=== PATIENT | male | born 1940 | race Hispanic/Latino ===

== ENCOUNTER 2025-02-16 16:22 | Inpatient (IN) | payer MEDICARE, OTHER ==
[~2025-02-16] VITALS: Ht 167.6 cm; Wt 69.6 kg
[2025-02-16 16:41] VITALS: TEMP 98.6
[2025-02-16 17:27] LABS: BASOPHILS % 0.4 % (0.0-1.0); EOSINOPHILS % 0.6 % (0.0-6.0); HEMATOCRIT 30.6 % (38.2-49.6); LYMPHOCYTES # (AUTO) 0.8 (1.0-3.2); LYMPHOCYTES % 15.6 % (18.0-39.1); MEAN CORPUSCULAR HEMOGLOBIN 28.7 pg (28-32); MEAN CORPUSCULAR HGB CONC 32.7 g/dL (31-35); MEAN CORPUSCULAR VOLUME 87.7 fL (81-99); MONOCYTES # (AUTO) 0.4 (0.2-0.8); NEUTROPHILS # (AUTO) 3.9 (2.1-6.9); NEUTROPHILS % 74.6 % (38.7-80.0); PLATELET COUNT 278 x10e3/uL (140-360); RED BLOOD COUNT 3.49 x10e6/uL (4.3-5.7); WHITE BLOOD COUNT 5.27 x10e3/uL (4.8-10.8)
[2025-02-16 17:31] LABS: INR 1.01; PARTIAL THROMBOPLASTIN TIME 28.2 seconds (23.8-35.5); PROTHROMBIN TIME 13.9 seconds (11.9-14.5)
[2025-02-16 17:41] LABS: ALBUMIN 3.5 g/dL (3.5-5.0); ALBUMIN/GLOBULIN RATIO 0.7 (0.8-2.0); ANION GAP 15.8 mmol/L (8-16); BILIRUBIN,TOTAL 0.6 mg/dL (0.2-1.2); CALCIUM 9.3 mg/dL (8.4-10.2); CREATININE, SERUM 0.97 mg/dL (0.72-1.25); MAGNESIUM 2.4 MG/DL (1.3-2.1); POTASSIUM 3.8 mmol/L (3.5-5.1); TOTAL PROTEIN 8.4 g/dL (6.5-8.1)
[2025-02-16 17:47] LABS: TROPONIN I 0.048 ng/mL (0-0.300)
[2025-02-16] MEDS: SODIUM CHLORIDE 0.9% 1000ML 1,000 ML IV STA (18:45)
[2025-02-16] MEDS: ONDANSETRON HCL INJ 2MG/ML 2ML 2 MG/ML VIAL IV STA (18:48)
[2025-02-16 19:34] VITALS: PULSE 89; RESP 17
[2025-02-16] MEDS ORDERED: ONDANSETRON HCL INJ 2MG/ML 2ML 2 MG/ML VIAL IV PRN (19:45)
[2025-02-16 19:48] LABS: BILIRUBIN,URINE SMALL (NEGATIVE); CLARITY,URINE SL CLOUDY (CLEAR); COLOR,URINE AMBER (YELLOW); GLUCOSE, URINE NEGATIVE (NEGATIVE); KETONES,URINE TRACE (NEGATIVE); LEUKOCYTE ESTERASE ,URINE NEGATIVE (NEGATIVE); NITRITE,URINE NEGATIVE (NEGATIVE); PH,URINE 5.5 (5 - 7); PROTEIN,URINE DIPSTICK 1+ (NEGATIVE); URINE UROBILINOGEN 4 mg/dL (0.2 - 1)
[2025-02-16 19:59] LABS: BACTERIA,URINE FEW /HPF; MUCUS,URINE MODERATE
[2025-02-16 20:00] VITALS: BP 111/67; PULSE 70; RESP 18; TEMP 97.8; O2SAT 98
[2025-02-16 21:00] VITALS: BP 102/63; PULSE 79; RESP 18; TEMP 98; O2SAT 100
[2025-02-16] MEDS: SODIUM CHLORIDE 0.9% 1000ML 1,000 ML IV SCH (23:22)
[2025-02-17] VITALS (8 sets, daily range): BP systolic 104–127; BP diastolic 57–82; PULSE 64–84; RESP 16–20; TEMP 97.6–98.3; O2SAT 98–100
[2025-02-17] MEDS: Morphine 4mg INJECTION 4 MG/ML INJ IV PRN (04:04)
[2025-02-17 05:26] LABS: BASOPHILS % 0.2 % (0.0-1.0); EOSINOPHILS % 0.8 % (0.0-6.0); HEMATOCRIT 25.4 % (38.2-49.6); HEMOGLOBIN 8.1 g/dL (14.0-18.0); LYMPHOCYTES # (AUTO) 0.8 (1.0-3.2); LYMPHOCYTES % 17.5 % (18.0-39.1); MEAN CORPUSCULAR HEMOGLOBIN 28.3 pg (28-32); MEAN CORPUSCULAR HGB CONC 31.9 g/dL (31-35); MEAN CORPUSCULAR VOLUME 88.8 fL (81-99); MONOCYTES # (AUTO) 0.5 (0.2-0.8); MONOCYTES % 11.2 % (4.4-11.3); NEUTROPHILS # (AUTO) 3.3 (2.1-6.9); NEUTROPHILS % 69.7 % (38.7-80.0); PLATELET COUNT 223 x10e3/uL (140-360); RED BLOOD COUNT 2.86 x10e6/uL (4.3-5.7); RED CELL DISTRIBUTION WIDTH 14.9 % (11.7-14.4); WHITE BLOOD COUNT 4.75 x10e3/uL (4.8-10.8)
[2025-02-17 05:59] LABS: ALBUMIN 2.9 g/dL (3.5-5.0); ALBUMIN/GLOBULIN RATIO 0.7 (0.8-2.0); ANION GAP 13.6 mmol/L (8-16); BILIRUBIN,TOTAL 0.4 mg/dL (0.2-1.2); CALCIUM 8.2 mg/dL (8.4-10.2); CREATININE, SERUM 0.81 mg/dL (0.72-1.25); POTASSIUM 3.6 mmol/L (3.5-5.1); TOTAL PROTEIN 6.8 g/dL (6.5-8.1)
[2025-02-17 06:39] LABS: TROPONIN I 0.038 ng/mL (0-0.300)
[2025-02-17] MEDS ORDERED: IOPAMIDOL 370 MG/ML 100 ML INFUS..BTL INJ ONE (08:13)
[2025-02-17 14:43] LABS: TROPONIN I 0.039 ng/mL (0-0.300)
[2025-02-17] MEDS ORDERED: LEVOTHYROXINE75 MCG PO (19:53)
[2025-02-17] MEDS ORDERED: SERTRALINE HCL50 MG PO (19:53)
[2025-02-17] MEDS ORDERED: CLEARLAX119 GM (19:53)
[2025-02-18 03:21] VITALS: BP 91/57; PULSE 59; RESP 18; TEMP 98.2; O2SAT 99
[2025-02-18 07:58] VITALS: BP 95/61; PULSE 56; RESP 19; TEMP 97.9; O2SAT 97
[2025-02-18 08:00] VITALS: BP 95/61; PULSE 56; RESP 19; TEMP 97.9; O2SAT 97
[2025-02-18] MEDS: ZIPRASIDONE 20 MG VIAL IM PRN (09:38)
[2025-02-18 16:22] VITALS: BP 156/79; PULSE 68; RESP 18; TEMP 97; O2SAT 100
[2025-02-18] MEDS ORDERED: ZIPRASIDONE 20 MG VIAL IM PRN (18:30)
[2025-02-18] MEDS ORDERED: HYDROCODONE/APAP 7.5MG-325MG 1 EA TAB PO PRN (18:30)
[2025-02-18] MEDS ORDERED: HYDRALAZINE HCL 20 MG/ML VIAL IV PRN (18:30)
[2025-02-18] MEDS: IRON SUCROSE 100 MG in SODIUM CHLORIDE 0.9% 100 ML IV SCH (20:00)
[2025-02-18 20:17] VITALS: BP 113/64; PULSE 58; RESP 18; TEMP 98.1; O2SAT 98
[2025-02-18] MEDS: GABAPENTIN 100 MG CAP PO SCH (22:00)
[2025-02-18] MEDS: METRONIDAZOLE 500MG/NS 100ML 100 ML IV SCH (22:00)
[2025-02-19] VITALS (7 sets, daily range): BP systolic 99–128; BP diastolic 59–81; PULSE 61–87; RESP 17–20; TEMP 97.9–98.7; O2SAT 98–100
[2025-02-19 05:05] LABS: BASOPHILS % 0.4 % (0.0-1.0); EOSINOPHILS % 0.4 % (0.0-6.0); HEMATOCRIT 26.1 % (38.2-49.6); HEMOGLOBIN 8.1 g/dL (14.0-18.0); LYMPHOCYTES # (AUTO) 0.7 (1.0-3.2); LYMPHOCYTES % 15.3 % (18.0-39.1); MEAN CORPUSCULAR HEMOGLOBIN 27.8 pg (28-32); MEAN CORPUSCULAR VOLUME 89.7 fL (81-99); MONOCYTES # (AUTO) 0.5 (0.2-0.8); MONOCYTES % 10.5 % (4.4-11.3); NEUTROPHILS # (AUTO) 3.5 (2.1-6.9); NEUTROPHILS % 72.8 % (38.7-80.0); PLATELET COUNT 192 x10e3/uL (140-360); RED BLOOD COUNT 2.91 x10e6/uL (4.3-5.7); RED CELL DISTRIBUTION WIDTH 14.9 % (11.7-14.4); WHITE BLOOD COUNT 4.77 x10e3/uL (4.8-10.8)
[2025-02-19 05:19] LABS: RAPID PLASMA REAGIN Non Reactive (Non Reactive)
[2025-02-19 05:34] LABS: ALBUMIN 2.8 g/dL (3.5-5.0); ALBUMIN/GLOBULIN RATIO 0.8 (0.8-2.0); ANION GAP 12.6 mmol/L (8-16); BILIRUBIN,TOTAL 0.3 mg/dL (0.2-1.2); CALCIUM 8.5 mg/dL (8.4-10.2); CREATININE, SERUM 0.79 mg/dL (0.72-1.25); POTASSIUM 3.6 mmol/L (3.5-5.1); TOTAL PROTEIN 6.3 g/dL (6.5-8.1)
[2025-02-19] MEDS ORDERED: THIAMINE HCL INJ 100 MG/ML 2ML VIAL ONE (07:46)
[2025-02-19] MEDS: QUETIAPINE FUMARATE 25 MG TAB PO SCH (08:43)
[2025-02-20] VITALS (7 sets, daily range): BP systolic 113–117; BP diastolic 61–71; PULSE 67–95; RESP 18–19; TEMP 97.6–98.4; O2SAT 94–100
[2025-02-20] MEDS: IRON SUCROSE 100 MG in SODIUM CHLORIDE 0.9% 100 ML IV SCH (00:44)
[2025-02-21] VITALS (9 sets, daily range): BP systolic 103–143; BP diastolic 49–82; PULSE 69–102; RESP 16–24; TEMP 97.2–98.4; O2SAT 96–100
[2025-02-22] VITALS (7 sets, daily range): BP systolic 117–133; BP diastolic 60–74; PULSE 66–97; RESP 17–19; TEMP 97.6–98.8; O2SAT 97–100
[2025-02-22 06:28] LABS: BASOPHILS % 0.2 % (0.0-1.0); EOSINOPHILS # (AUTO) 0.1 (0.0-0.4); EOSINOPHILS % 1.4 % (0.0-6.0); HEMATOCRIT 24.7 % (38.2-49.6); LYMPHOCYTES # (AUTO) 0.9 (1.0-3.2); LYMPHOCYTES % 15.7 % (18.0-39.1); MEAN CORPUSCULAR HEMOGLOBIN 27.2 pg (28-32); MEAN CORPUSCULAR HGB CONC 30.8 g/dL (31-35); MEAN CORPUSCULAR VOLUME 88.5 fL (81-99); MONOCYTES # (AUTO) 0.6 (0.2-0.8); MONOCYTES % 10.3 % (4.4-11.3); NEUTROPHILS % 71.3 % (38.7-80.0); PLATELET COUNT 231 x10e3/uL (140-360); RED BLOOD COUNT 2.79 x10e6/uL (4.3-5.7); RED CELL DISTRIBUTION WIDTH 15.5 % (11.7-14.4); WHITE BLOOD COUNT 5.55 x10e3/uL (4.8-10.8)
[2025-02-22 06:34] LABS: HEMOGLOBIN 7.6 g/dL (14.0-18.0)
[2025-02-22 07:05] LABS: ANION GAP 11.6 mmol/L (8-16); CALCIUM 8.3 mg/dL (8.4-10.2); CREATININE, SERUM 0.76 mg/dL (0.72-1.25); POTASSIUM 3.6 mmol/L (3.5-5.1)
== END 2025-02-22 20:10 | disposition hospice, home (50) | DRG 91 ==
LOC: ER 17:23 → ERHOLD 19:44 → MED/SURG 20:25
PROVIDERS: ADMIT Internal Medicine; ATTEND Internal Medicine
DX: G92.8 Other toxic encephalopathy (principal); E43 Unspecified severe protein-calorie malnutrition; F01.511 Vascular dementia, unspecified severity, with agitation; C15.9 Malignant neoplasm of esophagus, unspecified; F01.52 Vascular dementia, unspecified severity, with psychotic disturbance; N39.0 Urinary tract infection, site not specified; K22.2 Esophageal obstruction; Z51.5 Encounter for palliative care; I10 Essential (primary) hypertension; E78.5 Hyperlipidemia, unspecified; E86.0 Dehydration; Z93.1 Gastrostomy status; Z91.198 Patient's noncompliance with other medical treatment and regimen for other reason; Z63.4 Disappearance and death of family member; Z86.73 Personal history of transient ischemic attack (TIA), and cerebral infarction without residual deficits
CPT/HCPCS: 36415; 70450; 70551; 71045; 72125; 74177; 80048; 80053; 81001; 82140; 82550; 82607; 83735; 84443; 84484; 85025; 85610; 85730; 86592; 87086; 93005; 95819; 99252; 99284; J0692; J1756; J2270; J2405; J2470; J3411; J3486; J7030; J7050; Q9967